=== PATIENT | female | born 1985 | race Caucasian/White ===

== ENCOUNTER 2016-10-31 11:00 | Emergency (ER) | payer MEDICAID, OTHER, SELFPAY ==
[~2016-10-31] VITALS: Ht 160 cm; Wt 98.9 kg
[2016-10-31] MEDS ORDERED: KETOROLAC 30 MG/1 ML IVPush ONE (12:00)
[2016-10-31] MEDS ORDERED: DIPHENHYDRAMINE 50 MG/ML, 1ML IVPush ONE (12:00)
[2016-10-31] MEDS ORDERED: SODIUM CHLORIDE 0.9% 1,000ML IVBOLUS ONE (12:00)
[2016-10-31] MEDS ORDERED: SODIUM CHLORIDE FLUSH 10ML SYR IVF ONE (12:00)
[2016-10-31] MEDS ORDERED: METOCLOPRAMIDE 5 MG/ML, 2ML IVPush ONE (12:00)
[2016-10-31] MEDS ORDERED: METOCLOPRAMIDE 5 MG/ML, 2ML ONE (12:02)
[2016-10-31] MEDS ORDERED: DIPHENHYDRAMINE 50 MG/ML, 1ML ONE (12:02)
[2016-10-31] MEDS ORDERED: KETOROLAC 30 MG/1 ML ONE (12:02)
[2016-10-31 12:14] LABS: BLOOD UREA NITROGEN 11 mg/dL (7-18)
[2016-10-31 13:00] VITALS: BP 115/73
== END 2016-10-31 13:10 | disposition home or self-care (01) ==
LOC: ED 11:31
DX: G44.209 Tension-type headache, unspecified, not intractable (principal)
CPT/HCPCS: 36415; 80048; 82040; 85025; 96361; 96374; 96375; 99284; J1200; J1885; J2765; J7030

== ENCOUNTER → 2018-05-24 | Outpatient (CLI) | payer BC, OTHER ==
[~2018-05-24] MED LIST: MELA5TAB19 PO
[2018-05-24 08:56] LABS: BASOPHILS # (AUTO) 0.06 x10^3/uL (0-0.1); BASOPHILS % (AUTO) 1 % (0-1); EOSINOPHILS # (AUTO) 0.15 x10^3/uL (0-0.4); EOSINOPHILS % (AUTO) 2 % (1-7); LYMPHOCYTES # (AUTO) 3.32 x10^3/uL (1-3.4); LYMPHOCYTES % (AUTO) 35 % (22-44); MD NO; MEAN CORPUSCULAR HEMOGLOBIN 26.7 pg (27.0-34.8); MEAN CORPUSCULAR HGB CONC 32.9 g/dL (32.4-35.8); MEAN CORPUSCULAR VOLUME 81.1 fL (80-100); MEAN PLATELET VOLUME 7.5 fL (7.4-10.4); MONOCYTES % (AUTO) 4 % (2-9); NEUTROPHILS # (AUTO) 5.61 x10^3/uL (1.8-6.8); NEUTROPHILS % (AUTO) 59 % (42-75); PLATELET COUNT 399 x10^3/uL (130-400); RED BLOOD COUNT 4.27 x10^6/uL (3.82-5.3); RED CELL DISTRIBUTION WIDTH 14.7 % (9.6-15.2)
[2018-05-24 08:59] LABS: MICROSCOPIC INDICATED
[2018-05-24 09:06] LABS: INTERNATIONAL NORMALIZED RATIO 0.98 (0.93-1.1); PROTHROMBIN TIME 10.4 Seconds (9.6-11.5)
[2018-05-24 09:08] LABS: ALANINE AMINOTRANSFERASE 31 U/L (12-78); ALBUMIN 3.5 g/dL (3.4-5.0); ANION GAP 5 mmol/L (5-15); CALCIUM 9.1 mg/dL (8.5-10.1); CHLORIDE 110 mmol/L (98-107); CREATININE 0.79 mg/dL (0.55-1.02)
[2018-05-24 09:10] LABS: ALKALINE PHOSPHATASE 92 U/L (45-117); BILIRUBIN,TOTAL 0.4 mg/dL (0.2-1.0); TOTAL PROTEIN 8.1 g/dL (6.4-8.2)
[2018-05-24 09:19] LABS: CULTURE INDICATED? YES
== END | disposition home or self-care (01) ==
LOC: STAR 07:18
PROVIDERS: ATTEND Neurological Surgery
DX: Z01.818 Encounter for other preprocedural examination (principal); M41.125 Adolescent idiopathic scoliosis, thoracolumbar region; M43.24 Fusion of spine, thoracic region
CPT/HCPCS: 36415; 71046; 80053; 81001; 85025; 85610; 85730; 87086; 93005

== ENCOUNTER 2018-05-31 05:14 | Inpatient (IN) | payer OTHER ==
[~2018-05-31] VITALS: Ht 157.5 cm; Wt 105.5 kg
[2018-05-31] MEDS ORDERED: LACTATED RINGERS 1,000 ML IV SCH (06:25)
[2018-05-31 06:26] VITALS: BP 112/77
[2018-05-31 06:41] LABS: HCG UR SG 1.024 (1.003-1.030)
[2018-05-31] MEDS ORDERED: MIDAZOLAM 1 MG/ML, 2ML ONE (07:17)
[2018-05-31] MEDS ORDERED: FENTANYL PF 250 MCG/5ML ONE ×2 (07:17→09:12)
[2018-05-31] MEDS ORDERED: ONDANSETRON 2MG/ML, 2ML ONE (07:46)
[2018-05-31] MEDS ORDERED: NEOSTIGMINE 1 MG/ML, 10ML ONE (07:46)
[2018-05-31] MEDS ORDERED: PROPOFOL 10 MG/ML, 20ML ONE (07:46)
[2018-05-31] MEDS ORDERED: DEXAMETHASONE 4 MG/ML, 1ML ONE (07:46)
[2018-05-31] MEDS ORDERED: GLYCOPYRROLATE 0.2MG/1ML, 5ML ONE (07:46)
[2018-05-31] MEDS ORDERED: ROCURONIUM 10MG/ML,5ML ONE (07:46)
[2018-05-31] MEDS ORDERED: VANCOMYCIN 1,000 MG ONE (08:05)
[2018-05-31] MEDS ORDERED: HYDROmorphone 2 MG/ML, 1ML IVPush PRN (09:00)
[2018-05-31] MEDS ORDERED: ONDANSETRON ODT 8 MG PO PRN (09:00)
[2018-05-31] MEDS ORDERED: MEPERIDINE/PF 25MG/0.5ML IVPush PRN (09:00)
[2018-05-31] MEDS ORDERED: ONDANSETRON 2MG/ML, 2ML IV PRN ×2 (09:00→13:00)
[2018-05-31] MEDS ORDERED: PROMETHAZINE 25 MG/ML, 1ML IV PRN (09:00)
[2018-05-31] MEDS ORDERED: OXYcodone 5 MG/5 ML ORAL.SOL UDC PO PRN (09:00)
[2018-05-31] MEDS ORDERED: ACETAMINOPHEN 325 MG TABLET PO PRN (09:00)
[2018-05-31] MEDS ORDERED: DIAZEPAM 5 MG/ML, 2ML IVPush PRN (09:00)
[2018-05-31] MEDS ORDERED: ACETAMINOPHEN 650 MG/20.3 ML UDC ONE (10:40)
[2018-05-31] MEDS ORDERED: FENTANYL PF 100 MCG/2ML ONE (10:40)
[2018-05-31] MEDS ORDERED: OXYcodone 5 MG/5 ML ORAL.SOL UDC ONE (10:41)
[2018-05-31] MEDS: FENTANYL PF 100 MCG/2ML IV PRN ×2 (10:42→10:53)
[2018-05-31 12:32] VITALS: BP 121/81
[2018-05-31] MEDS ORDERED: DIPHENHYDRAMINE 50 MG/ML, 1ML IM PRN (13:00)
[2018-05-31] MEDS ORDERED: LABETALOL 5MG/ML, 20ML IV PRN (13:00)
[2018-05-31] MEDS ORDERED: DIPHENHYDRAMINE 50 MG CAPSULE PO PRN (13:00)
[2018-05-31] MEDS ORDERED: DIPHENHYDRAMINE 50 MG/ML, 1ML IVPush PRN (13:00)
[2018-05-31] MEDS ORDERED: VANCOMYCIN PER PHARMACY MC PRN (13:00)
[2018-05-31] MEDS ORDERED: MAGNESIUM HYDROXIDE 8%, 30ML UDC PO PRN (13:00)
[2018-05-31] MEDS ORDERED: OXYcodone/APAP 5/325MG TABLET PO PRN (13:00)
[2018-05-31] MEDS ORDERED: morphine SULFATE 10 MG/ML, 1ML IV PRN (13:00)
[2018-05-31] MEDS ORDERED: PROMETHAZINE 25 MG/ML, 1ML IM PRN (13:00)
[2018-05-31] MEDS ORDERED: HYDROcodone/APAP 5/325 TABLET PO PRN (13:00)
[2018-05-31] MEDS ORDERED: CYCLOBENZAPRINE 10 MG TABLET PO PRN (13:00)
[2018-05-31] MEDS ORDERED: BISACODYL 10 MG SUPP PR PRN (13:00)
[2018-05-31] MEDS ORDERED: PHARMACOKINETIC MONITORING MC PRN (13:30)
[2018-05-31] MEDS ORDERED: VANCOMYCIN 1,500 MG in SODIUM CHLORIDE 0.9% 250 ML IV SCH (13:30)
[2018-05-31] MEDS ORDERED: PHARMACOKINETIC CONSULTATION MC ONE (13:30)
[2018-05-31] MEDS: LABETALOL 5MG/ML, 20ML IV SCH ×2 (13:49→21:00)
[2018-05-31] MEDS: OXYcodone IR 5MG TABLET PO PRN ×2 (14:48→20:59)
[2018-05-31] MEDS: D5%-0.9% NACL+KCL 20MEQ 1,000 ML IV SCH (15:59)
[2018-05-31 19:53] VITALS: BP 96/57
[2018-05-31] MEDS: VANCOMYCIN 1,500 MG in SODIUM CHLORIDE 0.9% 250 ML IV SCH (19:57)
[2018-05-31] MEDS: MELATONIN 5 MG TABLET PO SCH (20:59)
[2018-05-31] MEDS: AMOXICILLIN/CLAV 875-125MG TABLET PO SCH (20:59)
[2018-06-01 01:44] VITALS: BP 112/71
[2018-06-01 05:00] VITALS: BP 106/76
[2018-06-01] MEDS: LABETALOL 5MG/ML, 20ML IV SCH ×3 (05:00→19:58)
[2018-06-01 07:36] VITALS: BP 127/82
[2018-06-01] MEDS: AMOXICILLIN/CLAV 875-125MG TABLET PO SCH ×2 (07:57→19:57)
[2018-06-01] MEDS: OXYcodone IR 5MG TABLET PO PRN ×4 (07:57→19:57)
[2018-06-01] MEDS: D5%-0.9% NACL+KCL 20MEQ 1,000 ML IV SCH ×2 (07:58→17:01)
[2018-06-01] MEDS: VANCOMYCIN 1,500 MG in SODIUM CHLORIDE 0.9% 250 ML IV SCH ×2 (07:58→19:51)
[2018-06-01] MEDS: SENNA/DOCUSATE TABLET PO SCH (07:58)
[2018-06-01] MEDS ORDERED: ENOXAPARIN 40 MG/0.4 ML SQ SCH ×2 (10:30)
[2018-06-01] MEDS: ENOXAPARIN 40 MG/0.4 ML SQ SCH (10:41)
[2018-06-01 12:50] VITALS: BP 125/85
[2018-06-01 19:33] VITALS: BP 121/85
[2018-06-01] MEDS: MELATONIN 5 MG TABLET PO SCH (19:57)
[2018-06-02 01:49] VITALS: BP 114/77
[2018-06-02] MEDS: OXYcodone IR 5MG TABLET PO PRN ×3 (02:32→10:32)
[2018-06-02] MEDS: D5%-0.9% NACL+KCL 20MEQ 1,000 ML IV SCH (02:33)
[2018-06-02] MEDS: LABETALOL 5MG/ML, 20ML IV SCH (05:00)
[2018-06-02 08:00] VITALS: BP 108/73
[2018-06-02] MEDS: VANCOMYCIN 1,500 MG in SODIUM CHLORIDE 0.9% 250 ML IV SCH (08:03)
[2018-06-02] MEDS: AMOXICILLIN/CLAV 875-125MG TABLET PO SCH (08:03)
[2018-06-02] MEDS: SENNA/DOCUSATE TABLET PO SCH (08:04)
[2018-06-02] MEDS ORDERED: AMOX1TAB64 PO (09:47)
[2018-06-02] MEDS ORDERED: OXYC5TAB2 PO (09:48)
[2018-06-02] MEDS ORDERED: CYCL-259 PO (09:49)
[2018-06-02] MEDS: ENOXAPARIN 40 MG/0.4 ML SQ SCH (10:29)
== END 2018-06-02 12:55 | disposition home or self-care (01) | DRG 460 ==
LOC: ORIP 05:14 → EDSTATUS 07:30 → 4NOR 11:41 → DCLOUNGE 06-02 11:56 → 4EST 06-02 12:30 → DCLOUNGE 06-02 12:30 → 4WST 06-02 12:37 → DCLOUNGE 06-02 12:41
PROVIDERS: ADMIT Neurological Surgery; ATTEND Neurological Surgery
PROC: 0RP604Z Removal of Internal Fixation Device from Thoracic Vertebral Joint, Open Approach (ICD-10-PCS; 2018-05-31)
PROC: 0RG Upper Joints, Fusion (ICD-10-PCS; principal; 2018-05-31 07:30)
DX: M96.0 Pseudarthrosis after fusion or arthrodesis (principal); Z68.41 Body mass index [BMI] 40.0-44.9, adult; G89.29 Other chronic pain; E66.01 Morbid (severe) obesity due to excess calories; Y83.8 Other surgical procedures as the cause of abnormal reaction of the patient, or of later complication, without mention of misadventure at the time of the procedure; Z88.1 Allergy status to other antibiotic agents; Z98.1 Arthrodesis status; Y92.098 Other place in other non-institutional residence as the place of occurrence of the external cause
CPT/HCPCS: 72072; J3490; 71046; 81025; 87070; 87075; 87077; 87102; 87147; 87186; 87205; 88305; 88311; C1729; G0378; J0171; J1100; J1650; J2250; J2405; J2704; J2710; J3010; J3370; C1762; J2270; J3480; J7050; J7120